=== PATIENT | female | born 1965 | race Caucasian/White ===

== ENCOUNTER 2021-04-01 22:57 | Emergency (ER) | payer OTHER ==
[2021-04-01] MEDS ORDERED: TETANUS/DIPHTHERIA/PERTUSSIS 0.5 ML SYRINGE IM ONE (23:24)
--- NOTE | 2021-04-01 23:24 | ED Physician Documentation ---
PD HPI UPPER EXT INJURY - Stated complaint Stated Complaint: LT FINGER LAC/INJ - Chief complaint Chief Complaint: Laceration - History obtained from History obtained from: Patient - History of Present Illness Location: Left, Finger Type of injury: Laceration Where injury occurred: Home Timing - onset: Enter time (22:30), Today Timing - details: Abrupt onset Pain level now: 4 Associated symptoms: No: Weakness, Numbness, Tingling, Swelling, Discolored Recently seen: Not recently seen - Additonal information Additional information: patient is right hand dominant. At approximately 10:30 PM tonight, she was cutting a head of lettuce from her garden when the knife slipped, causing laceration to her left 2nd digit. Unsure of last tetanus booster, possibly more than 10 years. Review of Systems Skin: reports: Laceration (s) Neurologic: denies: Focal weakness, Numbness PD PAST MEDICAL HISTORY - Past Medical History Past Medical History: Yes Cardiovascular: Hypertension Endocrine/Autoimmune: HyPOthyroidism - Past Surgical History Past Surgical History: Yes /ADJUNCT FACULTY: Hysterectomy - Present Medications Home Medications: Ambulatory Orders Medication Instructions Recorded Confirmed Levothyroxine [Synthroid] 11/01/14 11/01/14 Loratadine [Claritin] 10 mg PO DAILY #3 tablet 11/02/14 predniSONE [Deltasone] 60 mg PO DAILY 3 Days tablet 11/02/14 - Allergies Allergies/Adverse Reactions: Allergies Allergy/AdvReac Type Severity Reaction Status Date / Time amoxicillin trihydrate * Allergy Anaphylaxis Verified 04/01/21 22:59 [From Augmentin] Penicillins Allergy Edema Verified 04/01/21 22:59 potassium clavulanate * Allergy Anaphylaxis Verified 04/01/21 22:59 [From Augmentin] iv contrast dye AdvReac Hives Uncoded 04/01/21 22:59 - Social History Does the pt smoke?: Yes Smoking Status: Current every day smoker Does the pt drink ETOH?: Yes Does the pt have substance abuse?: No - Immunizations Immunizations are current?: No - POLST Patient has POLST: No PD ED PE NORMAL - Vitals Vital signs reviewed: Yes - General General: Alert and oriented X 3, No acute distress - Extremities Extremities: No edema - Neuro Neuro: No motor deficit (full flexion and extension left 2nd digit. LTS intact at tip), No sensory deficit PD ED PE EXPANDED - Extremities OSCAR UE/Hands Visual: 1 - laceration (2 cm length) Results - Vitals Vitals: Vital Signs - 24 hr 04/01/21 04/02/21 23:00 00:39 Temperature 36.5 C 36.5 C Heart Rate 67 62 Respiratory 16 16 Rate Blood Pressure 147/97 H 160/88 H O2 Saturation 97 98 Oxygen O2 Source Room air Procedures - Laceration (location) Finger left Length in cm: 2 Wound type: Linear, Into subcut fat, Clean Neurovascular status: Sensory intact, Motor intact, Vascular intact Tendon involvement: Tendon intact Anesthesia: Lidocaine 1%, With bicarb Wound preparation: Chlorhexadine, Wound explored Skin layer closure: Nylon, Running, Size #-0 - enter number (4-0) Other: Patient tolerated well, No complications, Neurovascular intact, Dressing applied, Tetanus booster given PD MEDICAL DECISION MAKING - ED course Complexity details: considered differential, d/w patient Departure - Departure Disposition: 01 Home, Self Care Clinical Impression: Laceration Condition: Good Instructions: ED Laceration Ext Sutr Stap Tape Comments: Follow up with your primary care provider in 7-8 days for removal of the stitches Discharge Date/Time: 04/02/21 00:39
[2021-04-01] MEDS ORDERED: BUFFERED LIDOCAINE 10 ML SYRINGE SUBQ STA (23:31)
[2021-04-02] MEDS ORDERED: BACITRACIN ZINC OINT 1 PACKET TOP STA (00:30)
[2021-04-02 00:41] VITALS: BP 160/88
== END 2021-04-02 00:39 | disposition home or self-care (01) ==
LOC: ED 22:57
DX: S61.211A Laceration without foreign body of left index finger without damage to nail, initial encounter (principal); W26.0XXA Contact with knife, initial encounter; Y93.G1 Activity, food preparation and clean up; Y92.009 Unspecified place in unspecified non-institutional (private) residence as the place of occurrence of the external cause; I10 Essential (primary) hypertension; F17.200 Nicotine dependence, unspecified, uncomplicated; Z23 Encounter for immunization
CPT/HCPCS: 12001; 90471; 90715; 99282; 99283; A9270

== ENCOUNTER 2021-05-08 10:50 | Outpatient (CLI) | payer OTHER ==
--- NOTE | 2021-05-12 13:20 | Mammography Report ---
BILATERAL DIGITAL SCREENING MAMMOGRAM 3D/2D: 05/08/2021 CLINICAL: Routine screening. Baseline exam. No prior exams were available for comparison. There are scattered fibroglandular elements in both br easts. There is a round asymmetry with a circumscribed margin in the left breast middle depth superior regio n seen on the mediolateral oblique view only. Finding is seen only on tomography. No other significant masses, calcifications, or other findings are seen in either breast. IMPRESSION: INCOMPLETE: NEEDS ADDITIONAL IMAGING EVALUATION The round asymmetry in the left breast is indeterminate. Additional views with possible ultrasound a re recommended. This exam was interpreted at Station ID: [id number]. NOTE: For mammograms, a report in lay terms will be sent to the patient. Approximately 15% of breast malignancies will not be visualized mammographically. In the management of a palpable breast mass, a negative mammogram must not discourage biopsy of a clinically suspicious lesion. Electronically Signed By: Abigail anguiano/agata:05/09/2021 16:42:54 ACR BI-RADS Category 0: Incomplete 3340F PARENCHYMAL PATTERN: (A) - The breast(s) demonstrate(s) scattered fibroglandular densities. BI-RADS CATEGORY: (0) - 0 Mammo and [place] [id number] Immediate follow-up LATERALITY: (B)
== END 2021-05-08 10:51 | disposition home or self-care (01) ==
LOC: DI 10:50
DX: Z12.31 Encounter for screening mammogram for malignant neoplasm of breast (principal); R92.8 Other abnormal and inconclusive findings on diagnostic imaging of breast

== ENCOUNTER 2021-06-02 12:24 | Outpatient (CLI) | payer OTHER ==
--- NOTE | 2021-06-03 16:08 | Ultrasound Report ---
LIMITED ULTRASOUND OF LEFT BREAST AND AXILLA: 06/02/2021 CLINICAL: Patient returns today to evaluate an asymmetry in the left breast. Comparison is made to exams dated: 06/02/2021 mammogram and 05/08/2021 mammogram - [facility]. Color flow and real-time ultrasound of the left breast 11 o'clock, and axilla regions were performed . Jones scale images of the real-time examination were reviewed. There is a 0.5 cm x 0.4 cm x 0.3 cm oval mass with a microlobulated margin in the left breast at 11 o 'clock middle depth 8 cm from the nipple. This oval mass is hypoechoic. This correlates with mammog archana findings. No significant abnormalities were seen sonographically in the left axilla. IMPRESSION: SUSPICIOUS OF MALIGNANCY The 0.5 cm x 0.4 cm x 0.3 cm oval mass in the left breast is at a low suspicion for malignancy. An u ltrasound guided biopsy is recommended. The findings and recommendations were discussed with the pat ient by the onsite radiologist, Dr. Peace, at the time of the exam. This exam was interpreted at Station ID: [id number]. Electronically Signed By: Damion carpio/agata:06/02/2021 14:28:54 Ultrasound BI-RADS: 4a Low suspicion for malignancy BI-RADS CATEGORY: (4a) - Low Susp None [id number] Immediate follow-up LATERALITY: ()
--- NOTE | 2021-06-03 16:08 | Mammography Report ---
UNILATERAL LEFT DIGITAL DIAGNOSTIC MAMMOGRAM 3D/2D: 06/02/2021 CLINICAL: Patient returns today to evaluate an asymmetry in the left breast. Comparison is made to exam dated: 05/08/2021 mammogram - [facility]. There are sca ttered fibroglandular elements in left breast. There is an oval low density focal asymmetry with an indistinct margin in the left breast at 11 o'adolph ck middle depth. Finding is seen only on tomography. This is seen in additional views. No other significant masses or calcifications are seen in the breast. IMPRESSION: INCOMPLETE: NEEDS ADDITIONAL IMAGING EVALUATION The oval low density focal asymmetry in the left breast is indeterminate. An ultrasound is recommend ed. This exam was interpreted at Station ID: [id number]. NOTE: For mammograms, a report in lay terms will be sent to the patient. Approximately 15% of breast malignancies will not be visualized mammographically. In the management of a palpable breast mass, a negative mammogram must not discourage biopsy of a clinically suspicious lesion. Electronically Signed By: Damion carpio/agata:06/02/2021 14:24:31 ACR BI-RADS Category 0: Incomplete 3340F PARENCHYMAL PATTERN: (A) - The breast(s) demonstrate(s) scattered fibroglandular densities. BI-RADS CATEGORY: (0) - 0 Ultrasound [id number] Immediate follow-up LATERALITY: (L)
== END 2021-06-02 12:25 | disposition home or self-care (01) ==
LOC: DI 12:24
PROVIDERS: ATTEND Family Medicine
DX: N63.22 Unspecified lump in the left breast, upper inner quadrant (principal)

== ENCOUNTER 2021-06-11 12:28 | Outpatient (CLI) | payer OTHER ==
[2021-06-11] MEDS ORDERED: BUFFERED LIDOCAINE 10 ML SYRINGE ONE ×2 (12:42→12:43)
[2021-06-11] MEDS ORDERED: LIDOCAINE MPF 1%-EPI 1:200000 30 ML VIAL ONE (12:43)
[2021-06-11] MEDS ORDERED: BUFFERED LIDOCAINE 10 ML SYRINGE IU ONE (15:46)
[2021-06-11] MEDS ORDERED: LIDOCAINE MPF 1%-EPI 1:200000 30 ML VIAL ID ONE (16:00)
--- NOTE | 2021-06-12 09:08 | Mammography Report ---
UNILATERAL LEFT DIGITAL DIAGNOSTIC MAMMOGRAM 3D/2D: 06/11/2021 CLINICAL: Post left breast ultrasound biopsy, clip placment imaging. Comparison is made to exams dated: 06/02/2021 ultrasound, 06/02/2021 mammogram, and 05/08/2021 mammogram - [facility]. There are scattered fibroglandular elements in left breast. There also is a marker clip in the appropriate position in the left breast at 11 o'clock middle depth . This marker clip placement is at the biopsy site. No other significant masses or calcifications a re seen in the breast. IMPRESSION: INCOMPLETE: NEEDS ADDITIONAL IMAGING EVALUATION There was a successful marker clip placement in the left breast at 11 o'clock middle depth. This exam was interpreted at Station ID: [id number]. NOTE: For mammograms, a report in lay terms will be sent to the patient. Approximately 15% of breast malignancies will not be visualized mammographically. In the management of a palpable breast mass, a negative mammogram must not discourage biopsy of a clinically suspicious lesion. Electronically Signed By: Last Lira acr/:06/11/2021 16:38:34 ACR BI-RADS Category 0: Incomplete 3340F PARENCHYMAL PATTERN: (A) - The breast(s) demonstrate(s) scattered fibroglandular densities. BI-RADS CATEGORY: (0) - 0 Unspecified - other recall n/a LATERALITY: (B)
--- NOTE | 2021-06-16 13:04 | Ultrasound Report ---
ULTRASOUND GUIDED BIOPSY LEFT BREAST WITH MARKING DEVICE INSERTED: 06/11/2021 CLINICAL: Left breast mass. PATIENT CONSENT: Risks (minor bleeding, infection, vasovagal reaction and repeat procedure), benefits and alternatives were explained to the patient and written informed consent was obtained. Correlation is made to exams dated: 06/11/2021 mammogram, 06/02/2021 ultrasound, 06/02/2021 mammogram, an d 05/08/2021 mammogram - [facility]. An ultrasound guided biopsy using real-time ultrasound was performed for the 0.5 cm x 0.3 cm x 0.5 cm mass located in the left breast at 11 o'clock middle depth 8 cm from the nipple. The skin was prepp ed in the usual manner. A 13 gauge biopsy needle was placed adjacent to the abnormality under ultras ound guidance. Once the needle was documented to be in the correct location, four specimens were obt ained using an automated biopsy gun. A Hydromark clip was inserted into the biopsy cavity. Post pro cedure imaging demonstrates the location device at the targeted area. The specimens were sent to the laboratory for pathological analysis. IMPRESSION: ULTRASOUND GUIDED BIOPSY BENIGN Ultrasound guided biopsy of the 0.5 cm x 0.3 cm x 0.5 cm mass in the left breast at 11 o'clock middle depth 8 cm from the nipple was performed. Pathology indicates benign cyst formation. Pathology res ults are concordant with imaging findings. Return to annual screening schedule is recommended. This exam was interpreted at Station ID: [id number]. Last Lira acr/:06/16/2021 11:37:44 BI-RADS CATEGORY: () - Unspecified - other [id number] return to screening LATERALITY: (B)
== END 2021-06-11 12:29 | disposition home or self-care (01) ==
LOC: DI 12:28
PROVIDERS: ATTEND Family Medicine
DX: N60.12 Diffuse cystic mastopathy of left breast (principal)
CPT/HCPCS: 19083

== ENCOUNTER 2022-07-03 09:31 | Outpatient (CLI) | payer OTHER | END 2022-07-03 09:32 | disposition home or self-care (01) | LOC: SC 09:31 | PROVIDERS: ATTEND Nurse Practitioner Family | DX: G47.33 Obstructive sleep apnea (adult) (pediatric) (principal); R09.02 Hypoxemia | CPT/HCPCS: 95806 ==

== ENCOUNTER 2022-07-21 08:58 | Outpatient (CLI) | payer OTHER ==
--- NOTE | 2022-07-21 08:55 | SLEEP CARE CONSULTATION ---
Information from patient questionnaire entered by Sarah Hernandez. I have reviewed and concur with the information entered by Sarah Hernandez. This document represents the service I personally performed and the decisions made by me, Josseline Hagan ARNP. History of Present Illness Service Date and Time: 07/21/2022 0840 Initial [place] Sleepiness Scale score: 17 (06/04/2022) Current [place] Sleepiness Scale score: 17 (07/21/22) Additional HPI information: MEKHI DUMONT returns via video telehealth visit for follow up and results of the recently performed home sleep study. I explained the pathophysiology behind obstructive sleep apnea. We then spent quite a bit of time discussing different treatment options. For mild obstructive sleep apnea, surgery and oral appliance are alternatives to nasal CPAP therapy but in moderate or severe cases, nasal CPAP is the most effective and reliable treatment. Because apnea is primarily in supine position, then positional management therapy could be effective. Methods discussed such as positioning with pillows to prevent supine sleep. I reviewed the impact of weight changes on sleep apnea and strongly recommended losing weight. After some discussion, the patient opted to go with the nasal CPAP therapy. Nasal autoCPAP set at 4-15 cmH20 will be ordered with rationale explained. A manual titration study will be ordered if unable to find optimal pressure with office adjustments. I explained how CPAP machine works and what to expect when using the machine. Using CPAP every night in order to get used to it was emphasized. Patient advised to put CPAP mask on before getting into bed so as not to fall asleep without CPAP. To assist acclimation to CPAP use, it could also be used for a short time during day while reading or watching TV. The patient was instructed to call the CPAP supplier to discuss any mechanical problem that may occur. If the mask given is uncomfortable or is difficult to keep on through the night even with adjustment, contact the CPAP supplier as many will replace with another mask style if notified before 30 days. If snoring or perceives is not getting enough air or too much air from the machine, notify this office. Patient does not drink alcohol. Patient was cautioned about risks of drowsy driving until sleepiness symptoms resolve. Sleep Study - Results Type of Sleep Study: Home sleep study (DONE 07/03/22) Prior sleep studies: No Polysomnography/Home Sleep Study results: Physician Impression: The quality of the study is good. The length of the study is adequate (> 240 minutes). Please also see the tabulated and graphic data. 1. Obstructive Sleep Apnea-Hypopnea (ICD-10 G47.33), severe, with an AHI of 46.3/hr and roseline SaO2 of 74%. During the study, the patient had 380 apneas (380 obstructive, 0 central, 0 mixed) and 76 hypopneas. The longest episode lasted 96.5 seconds. The respiratory events occurred more frequently during supine sleep (supine AHI was 80.4 and non-supine, 32.69). 2. Hypoxemia (ICD-10 R09.02), moderate, with the lowest oxygen saturation of 74 % and 27.7 minutes with SaO2 under 90%. Baseline oxygen saturation was normal (Average oxygen saturation was 93%). Allergies and Home Medications Home medication list reviewed: Yes (no changes) Allergy and home medication list: Allergies amoxicillin trihydrate * [From Augmentin] Allergy (Verified 04/01/21 22:59) Anaphylaxis Penicillins Allergy (Verified 04/01/21 22:59) Edema potassium clavulanate * [From Augmentin] Allergy (Verified 04/01/21 22:59) Anaphylaxis iv contrast dye Adverse Reaction (Uncoded 04/01/21 22:59) Hives Review of Systems Review of systems same as previous: Yes (no changes) Physical Exam Vital signs obtained and entered by: VIA PHONE Height: 5 ft 10 in Weight: 220 lb (pt reported) Body Mass Index: 31.5 BMI Classification: Obese Impression and Plan 1. Obstructive Sleep Apnea-Hypopnea Syndrome, severe, with lowest oxygen saturation of 74%. Obviously this is the cause of the patients symptoms of unrefreshed sleep, and excessive daytime sleepiness. Positive pressure therapy could benefit hypertension, anxiety and gastric reflux. As mentioned above, the patient will be started on nasal autoCPAP therapy with pressure set at 4-15 cmH2 O. Compliance guidelines also reviewed. A copy of compliance guidelines will be given for reference at check out. Because the apnea is more severe supine, I instructed to avoid sleeping supine using pillow positioning until able to start CPAP use. 2. Hypoxemia, moderate, with the lowest oxygen saturation of 74 % and 27.7 minutes with SaO2 under 90%. Her baseline oxygen saturation was normal with an average oxygen saturation of 93%. * Nasal auto CPAP therapy, pressure at 4-15 cm H2O. * Attempt to lose weight. * Avoid alcohol consumption near bedtime. * Avoid supine sleep until using CPAP. * The patient is again cautioned about driving until sleepiness completely resolves. * Return one month after CPAP obtained. I will assess response to therapy and compliance at that time. Visit Type: Telehealth Video Video Type: Doximity Patient Location: Office (work) Location of Provider: Office Patient agrees and consents to this telehealth visit type: Yes Patient agrees to have their insurance billed: Yes Time Spent with Patient (minutes): 17 Provider Statement: I spent 100% of the Telehealth Video Call with the patient with greater than 50% spent counseling the patient and coordination of care.
== END 2022-07-21 08:59 | disposition home or self-care (01) ==
LOC: SC 08:58
PROVIDERS: ATTEND Nurse Practitioner Family
DX: G47.33 Obstructive sleep apnea (adult) (pediatric) (principal); R09.02 Hypoxemia; E66.9 Obesity, unspecified; Z68.31 Body mass index [BMI] 31.0-31.9, adult

== ENCOUNTER 2022-11-25 10:02 | Outpatient (CLI) | payer OTHER ==
[2022-11-25 10:38] VITALS: BP 128/80
--- NOTE | 2022-11-25 10:38 | SLEEP CARE CONSULTATION ---
Information from patient questionnaire entered by Christy Cotton. I have reviewed and concur with the information entered by Christy Cotton. This document represents the service I personally performed and the decisions made by me, Josseline Hagan ARNP. History of Present Illness Service Date and Time: 11/25/2022 1002 Previous diagnosis: Severe, Obstructive Sleep Apnea-Hypopnea Syndrome AHI: 46.3 (in 2021) Reason for follow up: first compliance ( SET UP 08-05-22) Equipment type: CPAP (RESMED Airsense 11 s/u 07/2022) Equipment obtained from: [employer] (getting supplies) Mask style: Full face Mask brand: Resmed (Airfit F20) Backup mask available: Yes (has different style mask ) Last cushion change: 1 month Prior sleep studies: No Type of Sleep Study: Home sleep study (DONE 07/03/22) HPI additional information: MEKHI DUMONT was diagnosed to have severe, AHI 46.3, obstructive sleep apnea-hypopnea syndrome and returned today for CPAP therapy first compliance follow-up. Sleep Study - Results Type of Sleep Study: Home sleep study (DONE 07/03/22) Prior sleep studies: No CPAP Compliance Data - Data Reviewed with Patient Average duration of nightly device use: 5 hours 6 minutes Compliance rate %: 40 (39/60 days used) Current pressure setting (cmH2O): 4-15 (median 9.9, avg 13.2, max 14.0) Average residual AHI: 4.0 Central apnea: 0.2 Obstructive apnea: 2.3 Hypopnea: 1.0 Average large leak: 4.9 lpm Subjective Missed days of use due to: reports: mask issues (changed from nasal pillow to full face mask), illness (had a cough) Patient concerns: reports: mask leak noise, nasal congestion (when sick). denies: aerophagia, mask discomfort, air blowing in eyes, condensation in mask/hose, dry mouth, nose, throat, epistaxis Observed to snore while using device: No Current pressure setting perceived as: comfortable On therapy, patient: reports: sleeping better, awakening more refreshed, being more awake and alert during the day, more rested overall. denies: drowsiness while driving Initial [place] Sleepiness Scale score: 17 (06/04/2022) Current [place] Sleepiness Scale score: 15 (11/25/22) Allergies and Home Medications Drug allergies reviewed: Yes (see list in EMR) Home medication list reviewed: Yes (no changes) Review of Systems Review of systems same as previous: Yes (no changes) Physical Exam Vital signs obtained and entered by: CHRISTY Williamson MA Blood Pressure: 128/80 (LEFT ARM) Cuff size: regular Heart Rate: 64 O2 Saturation: 97 Height: 5 ft 10 in Weight: 226 lb 6.4 oz Body Mass Index: 32.5 BMI Classification: Obese Impression and Plan 1. Obstructive Sleep Apnea-Hypopnea Syndrome, severe, with fair treatment compliance and good apnea control. On CPAP therapy, the patient has better sleep quality and is more rested overall. She has had some struggles with her mask. She started with a nasal pillows mask but kept opening her mouth when sleeping and the noise would wake her up. She now has a full face ResMed AirFit F20 but it is leaking on the sides of mask. I showed her a [employer] hybrid mask that could work for her and she will call her DME about trying this mask. She has been sick and unable to wear mask due to nasal congestion and coughing as well. She is trying to wear mask nightly. The patients pressure will be changed to autoCPAP 10-14 cmH20 to reflect pressure being used. Patient advised to contact me if pressure change is uncomfortable so that it can be adjusted. Goals for apnea control discussed. Patient's apnea severity and rationale for treatme nt to reduce apnea, improve sleep quality and reduce cardiovascular and cerebrovascular events was reviewed. I also reviewed the benefit of consistent device use of CPAP for hypertension, gastric reflux and anxiety. 2. Obesity, unspecified. Currently patients BMI is 32.5. Obesity increases the risk of apnea, CPAP pressure requirements and overall health risks especially cardiovascular and diabetes. Thus patient is advised to lose weight. * Change auto CPAP pressure to 10-14 cmH2O * Notify me if snoring with mask or feeling that the pressure is too much or too little * Attempt to lose weight * Call this office if any problems using CPAP * Return for follow up in 1-2 months, or sooner if concerns arise Counseling Topics: Spare mask, Weight loss health impact Visit Type: In Office Time Spent with Patient (minutes): 20 Provider Statement: I spent 100% of the Face to Face Visit with the patient with greater than 50% spent counseling the patient and coordination of care.
== END 2022-11-25 10:03 | disposition home or self-care (01) ==
LOC: SC 10:02
PROVIDERS: ATTEND Nurse Practitioner Family
DX: G47.33 Obstructive sleep apnea (adult) (pediatric) (principal); E66.9 Obesity, unspecified; Z68.32 Body mass index [BMI] 32.0-32.9, adult
CPT/HCPCS: 99212; 99213

== ENCOUNTER 2023-01-08 14:27 | Outpatient (CLI) | payer OTHER ==
--- NOTE | 2023-01-08 14:25 | SLEEP CARE CONSULTATION ---
Information from patient questionnaire entered by Christy Cotton. I have reviewed and concur with the information entered by Christy Cotton. This document represents the service I personally performed and the decisions made by , Josseline Hagan ARNP. History of Present Illness Service Date and Time: 01/08/2023 1420 Previous diagnosis: Severe, Obstructive Sleep Apnea-Hypopnea Syndrome AHI: 46.3 (in 2021) Reason for follow up: one month (F/U) Equipment type: CPAP (RESMED Airsense 11 s/u 07/2022) Equipment obtained from: [employer] (getting supplies) Mask style: Full face Backup mask available: No (will keep old mask when replaced) Last cushion change: 2 months Prior sleep studies: No Type of Sleep Study: Home sleep study (DONE 07/03/22) HPI additional information: MEKHI DUMONT was diagnosed to have severe, AHI 46.3, obstructive sleep apnea-hypopnea syndrome and returns via video telehealth visit today for CPAP therapy one month follow-up. Sleep Study - Results Type of Sleep Study: Home sleep study (DONE 07/03/22) Prior sleep studies: No CPAP Compliance Data - Data Reviewed with Patient Average duration of nightly device use: 6 hours 39 minutes Compliance rate %: 57 ( days used) Current pressure setting (cmH2O): 10-14 Average residual AHI: 3.1 Central apnea: 0.2 Obstructive apnea: 1.2 Hypopnea: 0.9 Subjective Missed days of use due to: reports: illness (vertigo started Wednesday), travel (visiting out of town) Patient concerns: reports: mask leak noise. denies: aerophagia, mask discomfort, air blowing in eyes, condensation in mask/hose, nasal congestion, dry mouth, nose, throat, epistaxis Observed to snore while using device: No Current pressure setting perceived as: comfortable On therapy, patient: reports: sleeping better, awakening more refreshed, being more awake and alert during the day, more rested overall. denies: drowsiness while driving Initial [place] Sleepiness Scale score: 17 (06/04/2022) Current [place] Sleepiness Scale score: 12 (01/08/23) Allergies and Home Medications Known drug allergies: Yes (as listed) Drug allergies reviewed: Yes Home medication list reviewed: Yes (no changes) Allergy and home medication list: Allergies amoxicillin trihydrate * [From Augmentin] Allergy (Verified 01/07/23 14:19) Anaphylaxis Penicillins Allergy (Verified 01/07/23 14:19) Edema potassium clavulanate * [From Augmentin] Allergy (Verified 01/07/23 14:19) Anaphylaxis iv contrast dye Adverse Reaction (Uncoded 01/07/23 14:19) Hives Review of Systems Review of systems same as previous: Yes (no changes) Physical Exam Vital signs obtained and entered by: CHRISTY Williamson MA Height: 5 ft 10 in (PER PT) Weight: 226 lb (PER PT) Body Mass Index: 32.4 BMI Classification: Obese Impression and Plan 1. Obstructive Sleep Apnea-Hypopnea Syndrome, severe, with fair treatment compliance and good apnea control. On CPAP therapy, the patient has better sleep quality and is more rested overall. Patient has been able to get more time in the mask but recently she developed some vertigo and was concerned that it might be due to the CPAP. She denies illness or allergies. She denies nasal congestion. She states the vertigo has been improving on its own. I advised her to see her doctor if the vertigo does not we resolve on its own completely. Patient's apnea severity and rationale for treatment to reduce apnea, improve sleep quality and reduce cardiovascular and cerebrovascular events was reviewed. I also reviewed the benefit of consistent device use of CPAP for hypertension, gastric reflux and anxiety. 2. Obesity, unspecified. Patient has maintained her weight. Currently patients BMI is 32.4. Obesity increases the risk of apnea, CPAP pressure requirements and overall health risks especially cardiovascular and diabetes. Thus patient is advised to lose weight. The patient's CPAP pressure range should accommodate some weight loss. * Continue auto CPAP pressure at 10-14 cmH2O * Notify me if snoring with mask or feeling that the pressure is too much or too little * Attempt to lose weight * Call this office if any problems using CPAP * Return for follow up in 3 months, or sooner if concerns arise Counseling Topics: Spare mask, Weight loss health impact Visit Type: Telehealth Video Video Type: Doximity [facility] Location of Provider: Office Patient agrees and consents to this telehealth visit type: Yes Patient agrees to have their insurance billed: Yes Time Spent with Patient (minutes): 12 Provider Statement: I spent 100% of the Telehealth Video Call with the patient with greater than 50% spent counseling the patient and coordination of care.
== END 2023-01-08 14:28 | disposition home or self-care (01) ==
LOC: SC 14:27
PROVIDERS: ATTEND Nurse Practitioner Family
DX: G47.33 Obstructive sleep apnea (adult) (pediatric) (principal); E66.9 Obesity, unspecified; Z68.32 Body mass index [BMI] 32.0-32.9, adult

== ENCOUNTER 2023-08-15 17:30 | Emergency (ER) | payer OTHER ==
[2023-08-15 17:43] VITALS: BP 140/80; O2SAT 94
--- NOTE | 2023-08-15 17:58 | XRAY Report ---
PROCEDURE: Ankle 3 View RT INDICATIONS: Trauma TECHNIQUE: 3 views of the ankle were acquired. COMPARISON: None. FINDINGS: Bones: Curvilinear calcification adjacent to tip of lateral malleolus is seen suggestive of acute av ulsion injury. No other fracture or dislocation. Ankle mortise is normally aligned. No suspicious alicia ny lesions. Soft tissues: Moderate lateral ankle soft tissue swelling is seen. No tibiotalar joint effusion. Ach illes tendon appears normal. IMPRESSION: Suggestion of acute avulsion injury involving tip of lateral malleolus with overlying soft tissue swe lling. No dislocation. Ankle mortise is congruent. Reviewed by: Asad Warren MD on 08/15/2023 5:57 PM PDT Approved by: Asad Warren MD on 08/15/2023 5:57 PM PDT Station ID: [id number]
--- NOTE | 2023-08-15 18:00 | XRAY Report ---
PROCEDURE: Wrist 4 View RT INDICATIONS: Trauma TECHNIQUE: 3 views of the wrist were acquired. COMPARISON: None FINDINGS: Bones: No fractures or dislocations. No suspicious bony lesions. Soft tissues: No suspicious soft tissue calcifications or masses. IMPRESSION: Unremarkable wrist radiographs Reviewed by: Mitchel Andrade MD on 08/15/2023 4:58 PM AKDT Approved by: Mitchel Andrade MD on 08/15/2023 4:58 PM AKDT Station ID: [id number]
--- NOTE | 2023-08-15 18:22 | ED Physician Documentation ---
PD HPI LOWER EXT INJURY - Stated complaint Stated Complaint: FALL - Chief complaint Chief Complaint: Trauma Ext - History obtained from History obtained from: Patient - History of Present Illness PD HPI LOW EXT INJURY LOCATION: Right, Ankle Type of injury: Fall - Additional information Additional information: This is a 58-year-old female who presents with both right ankle and right wrist pain after a fall that occurred last night. The patient was in [place], went into a sunken living room that was about 2 strips down and fell. She twisted the right ankle and landed on an outstretched right wrist. She did not seek care at that time and flew home today and has been in the car traveling here. Noticed the limbs have been in a dependent position and she has not been able to elevate them or ice them. She has taken ibuprofen with some relief. She was not able to sleep last night however due to the pain. The wrist hurts m ore so than the ankle but they are both bothersome. She is able to bear weight but it is uncomfortable. No other injuries, she did not hit her head or lose consciousness. 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 - Present Medications Home Medications: Ambulatory Orders Medication Instructions Recorded Confirmed Levothyroxine [Synthroid] See Rx Instructions .ROUTE .COMPLEX 11/01/14 01/08/23 Loratadine [Claritin] 10 mg PO DAILY #3 tablet 11/02/14 01/08/23 predniSONE [Deltasone] 60 mg PO DAILY 3 Days tablet 11/02/14 01/08/23 - Allergies Allergies/Adverse Reactions: Allergies Allergy/AdvReac Type Severity Reaction Status Date / Time amoxicillin trihydrate * Allergy Anaphylaxis Verified 08/15/23 17:34 [From Augmentin] Penicillins Allergy Edema Verified 08/15/23 17:34 potassium clavulanate * Allergy Anaphylaxis Verified 08/15/23 17:34 [From Augmentin] iv contrast dye AdvReac Hives Uncoded 08/15/23 17:34 - Social History Does the pt smoke?: Yes Smoking Status: Current every day smoker Does the pt drink ETOH?: Yes Does the pt have substance abuse?: No - Immunizations Immunizations are current?: No - POLST Patient has POLST: No PD ED PE NORMAL - Vitals Vital signs reviewed: Yes - General General: Alert and oriented X 3, No acute distress, Well developed/nourished - HEENT HEENT: Atraumatic, Moist mucous membranes - Derm Derm: Normal color, Warm and dry, No rash - Extremities Extremities: Other (There is lateral malleolar swelling of the right ankle with tenderness over the lateral malleolus and into the anterior talofibular ligamen t. No other foot ankle tenderness. No obvious deformities. There is generalized swelling of the right wrist with decreased flexion extension due to pain. The) Results - Vitals Vitals: Vital Signs - 24 hr 08/15/23 17:34 Temperature 36.5 C Heart Rate 60 Respiratory 16 Rate Blood Pressure 140/80 H O2 Saturation 94 Oxygen O2 Source Room air - Rads (name of study) No standard instances Relevant Findings:: Final report received PD Medical Decision Making - ED course Complexity details: reviewed results, considered differential, d/w patient ED course: . 58-year-old female presented after a trip and fall last night when she is a landed on outstretched right wrist and twisted her right ankle. She arrives here with wrist and ankle pain and swelling. We obtained images of these areas to evaluate for possible fracture versus dislocation versus sprain versus soft tissue contusion. The right wrist x-ray was reviewed by me and is negative, the left ankle x-ray shows a possible avulsion fracture of the lateral malleolus, no other acute fractures. Discussed these findings with patient, recommended cool compress, ibuprofen and Tylenol for pain, light compression and elevation. We will place her right ankle in a posterior stirrup splint and provide crutches and advised her to be nonweightbearing until she follows up with orthopedics for this possible fracture. I discussed return precautions if new or worsening symptoms and patient was discharged home in stable condition. I did offer narcotic pain medication for this injury however patient felt fine using ibuprofen and Tylenol. Departure - Departure Disposition: 01 Home, Self Care Clinical Impression: Sprain of wrist, right Qualifiers: Encounter type: initial encounter Qualified Code(s): S63.501A - Unspecified sprain of right wrist, initial encounter Avulsion fracture of right ankle Qualifiers: Encounter type: initial encounter Fracture type: closed Qualified Code(s): S82.891A - Other fracture of right lower leg, initial encounter for closed fracture Condition: Good Instructions: ED Sprain Wrist, ED Fx Ankle Lateral Malleolus Follow-Up: Danyel Telles MD [Provider Admit Priv/Credential] - Comments: You have a right wrist sprain (no broken bones seen on xray) and a POSSIBLE avulsion fracture of the right lateral ankle. Please keep both areas elevated And use a cool compress for swelling. You can also take ibuprofen and Tylenol as well. We have placed you in a temporary splint in your ankle and provided crutches. Please avoid weightbearing until you follow-up with Ortho. They may place you in a walking boot or reimage you as its not entirely clear that you have an avulsion fracture. You likely have some component of ankle sprain as well which would benefit from the cool compress, ibuprofen and Tylenol and elevation. Please follow-up with the orthopedic surgeon listed below Within the next week and your primary care provider as needed. Forms: PCP List
== END 2023-08-15 18:51 | disposition home or self-care (01) ==
LOC: ED 17:30
DX: S82.891A Other fracture of right lower leg, initial encounter for closed fracture (principal); S63.501A Unspecified sprain of right wrist, initial encounter; W10.8XXA Fall (on) (from) other stairs and steps, initial encounter; I10 Essential (primary) hypertension; E03.9 Hypothyroidism, unspecified; F17.200 Nicotine dependence, unspecified, uncomplicated; Z79.899 Other long term (current) drug therapy
CPT/HCPCS: 99283

== ENCOUNTER 2024-05-04 18:52 | Emergency (ER) | payer OTHER ==
[2024-05-04 19:18] VITALS: BP 120/84; O2SAT 98
[2024-05-04 19:30] LABS: RAPID STREP SCREEN POSITIVE (Negative)
--- NOTE | 2024-05-04 19:59 | ED Physician Documentation ---
PD HPI URI - Stated complaint Stated Complaint: THROAT PX - Chief complaint Chief Complaint: Heent - History obtained from History obtained from: Patient - Additional information Additional information: 59-year-old female presents for sore throat and fevers for the last 2 days. Daughter also in the emergency department with similar symptoms. Today saw white spots in the back of her throat and was concerned for strep throat. Has been taking Tylenol and ibuprofen at home for symptoms. Review of Systems Constitutional: reports: Fever, Chills. denies: Myalgias, Fatigue Throat: reports: Sore throat. 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 - Present Medications Home Medications: Ambulatory Orders Medication Instructions Recorded Confirmed Levothyroxine [Synthroid] See Rx Instructions .ROUTE .COMPLEX 11/01/14 01/08/23 Loratadine [Claritin] 10 mg PO DAILY #3 tablet 11/02/14 01/08/23 predniSONE [Deltasone] 60 mg PO DAILY 3 Days tablet 11/02/14 01/08/23 cephALEXin [Keflex] 500 mg PO BID #20 cap 05/04/24 - Allergies Allergies/Adverse Reactions: Allergies Allergy/AdvReac Type Severity Reaction Status Date / Time amoxicillin trihydrate * Allergy Anaphylaxis Verified 05/04/24 19:12 [From Augmentin] Penicillins Allergy Edema Verified 05/04/24 19:12 potassium clavulanate * Allergy Anaphylaxis Verified 05/04/24 19:12 [From Augmentin] iv contrast dye AdvReac Hives Uncoded 05/04/24 19:12 - Social History Does the pt smoke?: Yes Smoking Status: Current every day smoker Does the pt drink ETOH?: Yes Does the pt have substance abuse?: No - Immunizations Immunizations are current?: No - POLST Patient has POLST: No PD ED PE NORMAL - Vitals Vital signs reviewed: Yes - General General: Alert and oriented X 3, No acute distress, Well developed/nourished - HEENT HEENT: Atraumatic, PERRL, EOMI, Moist mucous membranes, Dentition benign, Other (Pharyngeal erythema with white exudates bilaterally. 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 Positive for strep throat. Patient denies history of diabetes, given Decadron in the emergency department. Reports allergy to penicillins, Keflex sent to pharmacy of choice. Supportive measures counseled for home. Departure - Departure Disposition: 01 Home, Self Care Clinical Impression: Strep pharyngitis Condition: Stable Instructions: ED Strep Pharyngitis Conf Prescriptions: cephALEXin [Keflex] 500 mg PO BID #20 cap Comments: Your strep test was positive today. You have been given steroids today to help with your sore throat. Take Tylenol and ibuprofen at home as needed for pain, fever, discomfort. Antibiotics have been sent to the [facility] in [place]. Please finish all of your antibiotics even if you feel improved. Make sure to drink plenty of fluids and stay hydrated. Forms: PCP List Discharge Date/Time: 05/04/24 20:06
[2024-05-04] MEDS: DEXAMETHASONE 10 MG/ML VIAL PO STA (20:02)
[2024-05-04] MEDS: CHERRY SYRUP 10 ML UDC PO ONE (20:02)
== END 2024-05-04 20:06 | disposition home or self-care (01) ==
LOC: ED 18:52
DX: J02.0 Streptococcal pharyngitis (principal); I10 Essential (primary) hypertension; E03.9 Hypothyroidism, unspecified; F17.200 Nicotine dependence, unspecified, uncomplicated; Z79.899 Other long term (current) drug therapy
CPT/HCPCS: 87430; 99283; A9270